=== PATIENT | male | born 1960 | race Caucasian/White ===

== ENCOUNTER 2024-02-20 06:08 | Observation (INO) ==
--- NOTE | 2024-01-15 11:29 | Anesthesiology Consultation ---
Date of Service January 15, 2024 Assessment & Plan (1) Encounter for pre-operative examination: - Check BSG AM DOS - Infectious disease screening: Per assessment on 01/07/24: No known recent infectious disease contacts or current infectious disease symptoms. - Cardiology visit (11/17/22): "Stable from a cardiac standpoint. Denies angina/nitroglycerin use.. Decrease metoprolol succinate to 50mg daily.. ACS ruled out in ER 11/09 with no acute changes on EKG and normal trop x2.. MCOT for further evaluation of heart rate.. TTE to reassess degree of LVH and ensure normal LV systolic function.. Blood pressure is elevated today; however patient has not yet taken medications.. BP log sheet provided to patient.. Patient was educated to check blood pressure and heart rate 1-2 hours after morning medications, or if they are feeling poorly. Patient is to record these readings and call in 1 week with results. [facility].. LDL is well controlled" > Cardiology note 12/08/22: "MCOT revealed slow heart rates in the nighttime hours predominately. Otherwise average in the high 50's -60's range. Please ask patient if he snores, stops breathing at night or has daytime sleepiness. Patient would benefit from sleep study if agreeable." Continued on beta maurice. Echo done 01/2024. - Patient had cardiology-recommended Echo, observer helper and sleep medicine evaluation. Sleep medicine note indicates diagnosis of MERVAT but patient did not have further evaluation/PSG testing (no device currently noted). Patient did not have follow-up visit with [facility] cardiology since. Preop EKG notes SB at 40bpm with iLBBB. Note written to [facility] cardiology- Patient was not able to have [facility] cardiac clearance prior to surgery. Surgery postponed from 01/23/24 to 02/20/24. Scheduled for [facility] cardio appt. Patient acceptable risk for surgery pending cardiology preop evaluation ([facility], appt 01/31). Chart Review Chart Review: Patient NOT seen in Pre Admission Testing History Surgery Operation Date: 02/20/24 07:30 Proposed Procedures p Robotic assisted Laparoscopic Cholecystectomy, Possible Cholangiogram, Possible Open - Kevin Rodríguez, Height/Weight Height: 5 ft 10 in Weight: 149.232 kg Allergies Allergy/AdvReac Type Severity Reaction Status Date / Time No Known Allergies Allergy Verified 01/07/24 07:32 Medications Home Medications Medication Instructions Recorded Confirmed Last Taken diclofenac sodium 50 mg 50 mg PO DAILY PRN Pain 11/23/23 01/07/24 Unknown tablet,delayed release metformin 500 mg tablet 500 mg PO BID 11/23/23 01/07/24 Unknown metoprolol succinate 50 mg 50 mg PO QAM 11/23/23 01/07/24 Unknown tablet,extended release 24 hr omeprazole 20 mg capsule,delayed 20 mg PO QAM 11/23/23 01/07/24 Unknown release rosuvastatin 20 mg tablet 20 mg PO QAM 11/23/23 01/07/24 Unknown torsemide 20 mg tablet 20 mg PO QAM 11/23/23 01/07/24 Unknown valsartan 320 mg tablet 320 mg PO QAM 11/23/23 01/07/24 Unknown Past Medical History Medical History Arthritis Chronic low back pain Diabetes NIDDM GERD (gastroesophageal reflux disease) History of bradycardia Under surveillance HTN (hypertension) Hx of colonic polyps Hx of migraines Hx of pancreatitis Early 2022 No issues since Hyperlipidemia Morbid obesity MERVAT (obstructive sleep apnea) Dx per 01/31/24 [facility] sleep medicine visit Patient canceled subsequent PSG testing, no current device Past Family History Family History Father Kidney disease Cancer Diabetes Hypertension Stroke Mother Kidney disease Diabetes Brother Cancer Diabetes Hypertension Sister Diabetes Sister Diabetes Denies family history of Crohn's disease Colorectal cancer Ulcerative colitis Past Surgical History Surgical History History of esophagogastroduodenoscopy (EGD) Multiple History of hydrocelectomy Hx of colonoscopy 2022 Social History Smoking Status: Never smoker Do You Dip or Chew Tobacco: No Hx Alcohol Use: Yes (hx-none in years) Hx Substance Use: No substance use type: does not use Lab Results Anesthesia Preop Results Results Anesthesia Widget: WBC 9.03 K/ul (4.8-10.8) 12/31/23 Hgb 16.4 g/dl (14.0-18.0) 12/31/23 Hct 49.1 % (42.0-52.0) 12/31/23 Plt 363 K/uL (130-400) 12/31/23 Na 139 mmol/L (136-145) 12/31/23 K 4.6 mmol/L (3.5-5.1) 12/31/23 Cl 101 mmol/L (98-107) 12/31/23 CO2 31 mmol/L (21-32) 12/31/23 BUN 25 mg/dl (6-23) H 12/31/23 Creat 1.00 mg/dl (0.6-1.4) 12/31/23 Glucose Level 103 mg/dl (70-99(Fasting)) H 12/31/23 Testing Electrocardiogram Date: 01/14/24 SB with first degree AVB at 40bpm. iLBBB. Echocardiogram Date: 01/19/23 LVEF 61%. LV wall motion is normal. No significant valvular disease.
[2024-02-20] MEDS ORDERED: ONDANSETRON INJ 2 MG/ML 2 ML VIAL ONE (06:32)
[2024-02-20] MEDS ORDERED: MIDAZOLAM HCL 1 MG/ML 2ML VIAL ONE (06:32)
[2024-02-20] MEDS ORDERED: ROCURONIUM BROMIDE 10 MG/ML 5 ML VIAL IV ONE (06:32)
[2024-02-20] MEDS ORDERED: SUCCINYLCHOLINE CHLORIDE 20 MG/ML 10 ML VIAL IV ONE (06:32)
[2024-02-20] MEDS ORDERED: KETOROLAC 30 MG/ML VIAL ONE (06:32)
[2024-02-20] MEDS ORDERED: LIDOCAINE 2% 2 ML VIAL/AMP(20MG/ML) INFIL ONE (06:32)
[2024-02-20] MEDS ORDERED: DEXAMETHASONE SOD INJ 4 MG/ML VIAL ONE ×3 (06:32→08:26)
[2024-02-20] MEDS ORDERED: PROPOFOL IV EMULSION 10 MG/ML 20 ML VIAL IV ONE (06:32)
[2024-02-20] MEDS ORDERED: fentaNYL citrate PF 100 MCG/2 ML VIAL ONE (06:32)
[2024-02-20] MEDS ORDERED: ATROPINE SULFATE 0.1 MG/ML 10ML SYR IV PRN (06:49)
[2024-02-20] MEDS ORDERED: ePHEDrine sulfate 50 MG/ML AMP IV PRN (06:49)
[2024-02-20] MEDS ORDERED: fentaNYL citrate PF 100 MCG/2 ML VIAL IV PRN (06:49)
[2024-02-20] MEDS: INDOCYANINE GREEN 25 MG VIAL INJ ONE (06:51)
[2024-02-20] MEDS: LR 15ML/HR IV SCH (06:51)
[2024-02-20] MEDS: LACTATED RINGER'S 1,000 ML IV SCH ×2 (06:56→11:10)
--- NOTE | 2024-02-20 07:24 | History & Physical Report ---
Date of Service February 20, 2024 Assessment & Plan (1) Gallstones: Plan: Proceed with robotic assisted laparoscopic cholecystectomy, possible open, possible IOC today Will admit patient after procedure (2) Hx of pancreatitis: History of Present Illness Primary Care Provider: Navi Kimball DO This is a 64 yo male who is here for robotic assisted laparoscopic chol ecystectomy. No new medications or allergies. Allergies Allergy/AdvReac Type Severity Reaction Status Date / Time No Known Allergies Allergy Verified 02/20/24 06:30 Home Medications Medication Instructions Recorded Confirmed Type diclofenac sodium 50 mg 50 mg PO DAILY PRN Pain 11/23/23 02/20/24 History tablet,delayed release metformin 500 mg tablet 500 mg PO BID 11/23/23 02/20/24 History omeprazole 20 mg capsule,delayed 20 mg PO QAM 11/23/23 02/20/24 History release rosuvastatin 20 mg tablet 20 mg PO QAM 11/23/23 02/20/24 History torsemide 20 mg tablet 20 mg PO QAM 11/23/23 02/20/24 History valsartan 320 mg tablet 320 mg PO QAM 11/23/23 02/20/24 History nifedipine 60 mg tablet,extended 120 mg PO DAILY 02/20/24 02/20/24 History release 24 hr Past Med/Surg History Problem List (Updated 02/20/24 @ 07:23 by Kevin Rodríguez DO) Hx of pancreatitis Early 2022 No issues since Drug-induced sinus bradycardia Incomplete left bundle branch block (LBBB) Hyperlipemia Diabetes Gallstones HTN (hypertension) Medical History MERVAT (obstructive sleep apnea) Dx per 01/31/24 [facility] sleep medicine visit Patient canceled subsequent PSG testing, no current device Morbid obesity Arthritis Hx of colonic polyps Chronic low back pain GERD (gastroesophageal reflux disease) Hx of pancreatitis Early 2022 No issues since Hx of migraines History of bradycardia Under surveillance Hyperlipidemia HTN (hypertension) Diabetes NIDDM Surgical History History of hydrocelectomy Hx of colonoscopy 2022 History of esophagogastroduodenoscopy (EGD) Multiple Family History Father Kidney disease Cancer Diabetes Hypertension Stroke Mother Kidney disease Diabetes Brother Cancer Diabetes Hypertension Sister Diabetes Sister Diabetes Denies family history of Crohn's disease Colorectal cancer Ulcerative colitis Social History Smoking Status: Never smoker Second Hand Exposure: No; Do You Dip or Chew Tobacco: No; Tobacco Cessation Education Requested by Patient: No Hx Alcohol Use: Yes (hx-none in years) Hx Substance Use: No Preferred Language: Faroese Communication Ability: Effective Biology Department Chair Required: No Beliefs That Will Affect Care: None Current Living Situation: Alone Current Living Situation Comment: lives in apartment building Other Information That Helps Us Care for You: No Feels Safe at Home: Yes Safety Concerns: Feels Safe At This Time Assistive Devices: None Physical Exam Constitutional: WD/WN, vitals as above Eyes: PERRL, conjunctivae normal, anicteric sclerae ENMT: external ear and nose normal, oropharynx normal Neck: trachea midline, no thyromegaly Respiratory: normal respiratory effort, lungs clear to auscultation Cardiovascular: RRR, no murmur, no edema Gastrointestinal (Abdomen): Inspection/Auscultation: abdomen normal to inspection; abdomen not distended Percussion/Palpation: abdomen soft; abdomen nontender, no guarding and no hernia Musculoskeletal: no cyanosis or clubbing, extremities motor strength 5/5 Skin: no rashes, warm and dry Neurologic: PERRL, EOMI, accommodation nl, no face palsy, no dysarthria Psychiatric: A+Ox3, euthymic affect Results & Data Results & Data Vital Signs (Past 12 Hours) Vital Signs Temp Pulse Resp BP Pulse Ox O2 Del Method 02/20/24 06:34 36.8 C 73 22 169/93 H 95 Room Air PG Care Time/CCT Total # of Minutes Spent Total Time Spent with Patient: Total time spent is greater than 50% in coordination of care (as documented) at patient's floor/unit and/or counseling patient: Coding Level of Care Code None Diagnoses Gallstones K80.20 Hx of pancreatitis Z87.19
--- OUTSIDE RECORDS SUMMARY | 2024-02-20 07:24 | External Medical Summary | Summary of Care ---
Author Name Unknown Organization [facility] Address [address] [place] [address] Phone [phone] Care Team Providers Care Vp Compliance Name Role Phone Jigar Navi Elizondo DO Primary Care Provider + [phone] Reason for Visit * Reason Onset Date Comments Health Maintenance 01/29/2024 Encounter Details Date Type Department Care Team (Late st Contact Info) Description 01/29/2024 Telephone [facility] [address] [place] [address] Lynette Ryder CRNP [address] [place] [address] Health Maintenance Allergies No known active allergiesdocumented as of this encounter (statuses as of 02/06/2024) Medications Medication Sig Dispensed Refills Start Date End Date Status Polyethylene Glycol 3350 17 GM/SCOOP Oral Powder Take 17 g by mouth as needed. Active metFORMIN HCl 500 MG Oral Tablet (Glucophage)Indicatio ns:Prediabetes TAKE ONE TABLET BY MOUTH TWICE A DAY WITH BREAKFAST AND DINNER 180 Tablet 3 10/19/2022 Active Metoprolol Succinate ER 25 MG Oral Tablet Extended Release 24 Hour (toPROL XL)Indications:HTN, goal below 140/90,Bradycardia Take 1 Tablet by mouth in the morning. 90 Tablet 3 11/24/2022 Active Zoster Vac Recomb Adjuvanted 50 MCG/0.5ML Intramuscular Suspension Reconstituted (Shingrix)Indications :Need for shingles vaccine Inject 0.5 mL into a large muscle now and repeat dose in 60 to 180 days 1 Each 1 01/12/2023 Active Rosuvastatin Calcium 20 MG Oral Tablet (Crestor)Indications: Type 2 diabetes mellitus with diabetic polyneuropathy, without long-term current use of insulin (HCC),Mixed hyperlipidemia,Type 2 diabetes mellitus with diabetic polyneuropathy, unspecified whether half-way insulin use (HCC) Take 1 Tablet by mouth in the morning. 90 Tablet 3 04/19/2023 Active Torsemide 20 MG Oral Tablet (Demadex)Indications: HTN, goal below 140/90,LVH (left ventricular hypertrophy) TAKE 1 TABLET BY MOUTH EVERY DAY IN THE MORNING 90 Tablet 1 04/20/2023 Active Omeprazole 20 MG Oral Capsule Delayed Release (PriLOSEC) TAKE BY MOUTH 1 CAPSULE IN THE MORNING. TAKE 1 HOUR BEFORE THE FIRST MEAL OF THE DAY. 90 Capsule 1 04/20/2023 Active Losartan Potassium 100 MG Oral Tablet (Cozaar)Indications:H TN, goal below 140/90 TAKE 1 TABLET BY MOUTH EVERY DAY IN THE MORNING 90 Tablet 1 04/20/2023 Active documented as of this encounter (statuses as of 02/06/2024) Active Problems Problem Noted Date Diagnosed Date LVH (left ventricular hypertrophy) 09/30/2021 Erectile dysfunction 06/19/2019 Erosive gastropathy 03/05/2019 Type 2 diabetes mellitus with diabetic polyneuro mimi 02/14/2019 Renal cyst 02/28/2018 Obesity, morbid (more than 1 00 lbs over ideal weight or BMI > 40) 10/12/2017 Body mass index (BMI) of 50.0 to 59.9 in adult 1 Overview: Per Obesity protocol #1 Hereditary and idiopathic peripheral neuropathy 03/29/2016 Migraine without aura and wi thout status migrainosus, not intractable 01/05/2015 HTN, goal below 140/90 12/23/2014 Hyperlipidemia 12/11/2014 documented as of this encounter (statuses as of 02/06/2024) Resolved Problems Problem Noted Date Diagnosed Date Resolved Date Diabetes mellitus without complication 11/28/2017 03/05/2019 Venous stasis ulcers of both lower extremities 10/29/2017 09/30/2021 BMI 60.0-69.9, adult 10/12/2017 018 Leg swelling 10/12/2017 01/29/2018 Prediabetes 08/29/2017 01/29/2018 Edema 12/11/2016 10/12/2017 Arthritis of right foot 09/16/201511/17 Migraine 12/23/2014 01/05/2015 Obesity, morbid (more than 1 00 lbs over ideal weight or BMI > 40) 12/09/2014 03/22/2017 Overview: Per Obesity protocol #1 documented as of this encounter (statuses as of 02/06/2024) Immunizations Name Administration Dates Next Due Pneumococcal Conjugate Vacci ne, 20-valent ([id number]) 03/02/2023 Pneumococcal Polysaccharide PPV23 (Pneumovax) 10/29/2018 Seasonal Influenza Virus Vac cine, Unspecified Formulation 06/28/2020,03/05/2019 Seasonal Influenza, PF, 6 M & above, IM , (FluLaval or Fluzone) 03/02/2023,04/03/2022,06/28/2020,03/05,05/01/2018 documented as of this encounter Social History Tobacco Use Types Packs/Day Years Used Date Smoking Tobacco: Never Smokeless Tobacco: Never Alcohol Use Standard Drinks/Week Comments No 0 (1 standard drink = 0.6 oz pur e alcohol) PHQ-2 Answer Date Recorded PHQ Adult Total Score 0 01/12/2023 Hunger Vital Sign Answer Date Recorded Within the past 12 months, y ou worried that your food would run out before you got the money to buy more. Never true 01/13/20 23 Within the past 12 months, t he food you bought just didn't last and you didn't have money to get more. Never true 01/12/2023 Sex and Gender Information Value Date Recorded Sex Assigned at Not on file Gender Identity Not on file Sexual Orientation Not on file Job Start Date Occupation Industry Not on file Not on file Not on file documented as of this encounter Miscellaneous Notes * Telephone Encounter - Carlota Rebollar LPN - 01/29/2024 9:27 AM EDT Care Gaps Comprehensive Care Outreach Last Office/Telemedicine Visit: 01/12/2023 (in office), Visit date not found (telemedicine) Next Office Visit: Visit date not found Hemoglobin AIC Results: Lab Results Component Value Date/Time HEMOGLOBIN A1C - [facility] 5.8 (H) 01/12/2023 10:54 AM HEMOGLOBIN A1C - [facility] 5.5 04/03/2022 09:29 AM HEMOGLOBIN A1C - [facility] 5.4 09/30/2021 08:31 AM HEMOGLOBIN A1C - [facility] 6.2 (H) 06/28/2020 09:55 AM HEMOGLOBIN A1C - [facility] 5.9 (H) 12/25/2019 10:03 AM HEMOGLOBIN A1C - [facility] 5.6 08/29/2019 07:09 AM BP Readings from Last 1 Encounters: 01/12/23 142/70 Reviewed Health Maintenance below: Health Maintenance Topic Date Due Diabetic Eye Exam 10/11/2019 B-12 09/30/2022 HbA1c 07/15/2023 GFR 11/10/2023 Albumin/Creatinine Ratio 01/13/2024 Diabetic Foot Exam 01/13/2024 Care Gap Outreach Action Taken: Non-[facility] PCP chart updated documented in this encounter Plan of Treatment Scheduled Procedures Name Priority Associated Diagnoses Date/Ti me COLONOSCOPY FLEXIBLE PROXIMA L DIAGNOSTIC Recall History of colonic polyps Health Maintenance Due Date Last Done Comments DTaP,Tdap,and Td Vaccines (1 - Tdap) 01/27/1979 Sigmoidoscopy 01/27/2005 Zoster Vaccines (1 of 2) 01/27/2010 Fecal Occult Blood Test 10/26/2017 10/26/2016 Diabetic Eye Exam 10/11/2019 10/10/2018 Cologuard 10/29/2021 10/29/2018 B-12 09/30/2022 09/30/2021, 06/18, 02/14/2019, Additional history exists COVID-19 Vaccine ( season) 2023 HbA1c 07/15/2023 01/12/2023, 03/18, 09/30/2021, Additional history exists GFR 11/10/2023 11/09/2022, 03/18, 09/30/2021, Additional history exists Albumin/Creatinine Ratio 01/13/2024 023, 09/30/2021, 08/29/2019, Additional history exists Depression Screening 01/13/2024 01/12/2023 Diabetic Foot Exam 01/13/2024 01/12/2023, 0 09/30/2021, 10/29/2018 Influenza Vaccine (FLU shot) (#1) 2024 03/02/2023, 04/03/2022, 06/28/2020, Additional history exists Lipid Panel 04/03/2027 04/03/2022, 09/16, 06/28/2020, Additional history exists Colonoscopy 11/04/2027 11/03/2022, 10/16, 02/19/2019, Additional history exists Colorectal Cancer Screening 11/04/2027 RETIRED - COLONOSCOPY-EVERY 5 YRS AGES 18-100 Discontinued 11/03/2022, 11/03/2022, 02/19/2019, Additional history exists Pneumococcal Vaccine: Pediatrics (0 to 5 Years) and At-Risk Patients (6 to 64 Years) Completed 03/02/2023, 10/29/2018 HPV (Gardasil) Vaccine Aged Out No lo nger eligible based on patient's age to complete this topic Hepatitis B Vaccine Aged Out No longe r eligible based on patient's age to complete this topic MENINGOCOCCAL (MENACTRA/MENVEO) Aged Out No longer eligible based on patient's age to complete this topic documented as of this encounter Medical Devices Not on filedocumented as of this encounter Care Teams Vp Compliance Relationship Specialty Start Date End Date Navi Kimball DO [address] [place] [id number] PCP - General Family Medicine 01/29/24 documented as of this encounter
[2024-02-20] MEDS: ceFAZolin 3000MG 3,000 MG/72.5 ML BAG IV SCH (07:26)
[2024-02-20] MEDS ORDERED: ePHEDrine sulfate 50 MG/5 ML SYR ONE (07:57)
[2024-02-20] MEDS ORDERED: SUCCINYLCHOLINE 100MG/5ML SYR IV ONE ×2 (08:25)
[2024-02-20] MEDS ORDERED: SUGAMMADEX SODIUM 200 MG/2 ML VIAL IV ONE (09:12)
[2024-02-20] MEDS: BUPIVACAINE/EPINEPHRINE 0.5% MPF 1:200,000 30 ML VIAL ONE (09:26)
--- NOTE | 2024-02-20 09:31 | Post Operative Brief Note ---
PG Immediate Post Op with CF Date of Surgery February 20, 2024 Pre & Post Diagnosis Operation Date: 02/20/24 07:30 Pre-Op Diagnosis: Symptomatic Cholelithiasis, History of pancreatitis Post-Op Diagnosis: Symptomatic Cholelithiasis, History of pancreatitis I identified the patient and participated in the time-out.: Yes Procedure Operation Date: 02/20/24 07:30 Actual Procedures p Robotic assisted Laparoscopic Cholecystectomy, Cholangiogram(Not Applicable) - Kevin Rodríguez DO Surgeon Kevin Rodríguez DO Insurance Adjuster Bennett KIRKLAND Estimated Blood Loss 200 Findings Consistent with Post-Op Diagnosis Specimens Specimen Description: A. Gallbladder Anesthesia Type General Complications none Disposition Disposition: Recovery Room
--- NOTE | 2024-02-20 09:38 | Operative Report ---
PG Post Operative Report Pre & Post Diagnosis Operation Date: 02/20/24 07:30 Pre-Op Diagnosis: Symptomatic Cholelithiasis, History of pancreatitis Post-Op Diagnosis: Symptomatic Cholelithiasis, History of pancreatitis I identified the patient and participated in the time-out.: Yes Procedure Operation Date: 02/20/24 07:30 Actual Procedures p Robotic assisted Laparoscopic Cholecystectomy(Not Applicable) - Kevin Rodríguez DO Surgeon Kevin Rodríguez DO Health Services Director Bennett KIRKLAND Estimated Blood Loss 200 Findings Consistent with Post-Op Diagnosis Fluids see anesthesia record Specimens Gallbladder to pathology Drains None Anesthesia Type General Complications none Disposition Disposition: Recovery Room Indications 64 yo male with symptomatic cholelithiasis, history of gallstone pancreatitis Description of Procedure The patient was brought to the operating room and placed in the supine position with both arms extended. At this time he underwent general endotracheal anesthesia without any problems. He was given appropriate pre-operative antibiotics. His abdomen prepped and draped in the usual sterile fashion. A timeout was called, the procedure was verified as Robotic assisted laparoscopic cholecystectomy, possible open, possible intra-operative cholangiogram. Surgical, nursing and anesthesia teams agreed and the procedure was begun. After injection of 0.25% Marcaine with epinephrine, a supraumbilical vertical incision was made and carried down to the fascia using S-retractors. The abdominal wall was then elevated with towel clamps and abdomen entered using the Veress needle confirming position using the saline drop test. Pneumoperitoneum was established. 8mm trocar was placed. Laparoscope was introduced. No injury from entry into the abdomen was visualized after inspection of the abdomen. Three further ports were placed under direct visualization. One 5mm operations and intelligence assistant port in the RUQ and two 8mm robotic ports in the right and left mid abdomen in the mid clavicular line. The robot was then docked at this time and instruments placed into the abdomen under direct visualization. At this time the abdomen was inspected and the gallbladder identified. The gallbladder fundus was grasped and retracted cephalad. The gallbladder infundibulum was then grasped and retracted laterally. The cystic duct and cystic artery were then identified and skeletonized. The critical view of safety was obtained. They were both then clipped twice proximally and once distally and then divided using scissors. There was some bleeding from the fatty tissue around the duct that was controlled once the cystic duct was clipped. The gallbladder was then taken off of the liver bed using electrocautery and placed in an endocatch bag and removed from the right abdominal port. The liver bed was then inspected and no bile leak or bleeding was evident. The trocars were then removed under direct visualization and no bleeding was present. Abdomen was desufflated. The skin was then closed using 4-0 Monocryl in a subcuticular fashion. Surgical glue was applied. Needle and sponge counts were correct x 2. At this time the patient was awoken from anesthesia and extubated having remained stable throughout the entire case. The patient was then transported to PACU in stable condition. The nurse practitioner was present and scrubbed for the entire procedure. She was essential in positioning, prepping and draping the patient, retraction and exposure, closure of the incisions and placement of the dressings. I attest to the content of the Intraoperative Record and any orders documented therein. Any exceptions are noted below.
[2024-02-20] MEDS: ONDANSETRON INJ 2 MG/ML 2 ML VIAL IV PRN (09:51)
--- NOTE | 2024-02-20 10:38 | Anesthesiology Progress Note ---
Date of Service February 20, 2024 Anesthesia Post Procedure Vital Signs Vital Signs: Temp Pulse Resp BP Pulse Ox O2 Del Method O2 Flow Rate 02/20/24 10:30 70 12 164/88 H 96 Nasal Cannula 2 02/20/24 10:15 68 12 166/78 H 96 Nasal Cannula 2 02/20/24 10:05 97.5 F L 70 16 149/84 H 97 Nasal Cannula 2 02/20/24 09:55 71 15 164/81 H 97 Oxymask 11 02/20/24 09:45 72 20 168/96 H 93 Oxymask 11 02/20/24 09:39 97.0 F L 72 20 168/96 H 93 Oxymask 11 02/20/24 06:34 98.2 F 73 22 169/93 H 95 Room Air Pain Intensity Abdomen: Pain Intensity: 2 Transfer of Care Handoff Completed per policy Notes Mental Status: alert / awake / arousable and participated in evaluation Patient Amnestic to Procedure: Yes Nausea / Vomiting: adequately controlled Pain: adequately controlled Airway Patency, RR, SpO2: stable & adequate BP & HR: stable & adequate Hydration State: stable & adequate Anesthetic Complications: no major complications apparent and Pt Satisfied with anesthetic care
[2024-02-20] MEDS ORDERED: GLUCAGON FOR INJ 1 MG VIAL SQ PRN (10:49)
[2024-02-20] MEDS ORDERED: MoRPHine SULFATE 2 MG/ML CARP IV PRN (10:49)
[2024-02-20] MEDS ORDERED: ACETAMINOPHEN 325 MG TAB PO PRN (10:49)
[2024-02-20] MEDS ORDERED: ONDANSETRON INJ 2 MG/ML 2 ML VIAL IV PRN (10:49)
[2024-02-20] MEDS ORDERED: DEXTROSE 50% 50 ML SYRINGE IV PRN (10:49)
[2024-02-20] MEDS ORDERED: MoRPHine SULFATE 4 MG/ML 1 ML CARP\\VIAL IV PRN (10:49)
[2024-02-20] MEDS ORDERED: GLUCOSE 40% GEL 15 GM TUBE PO PRN (10:49)
[2024-02-20] MEDS ORDERED: PHARMACY GLYCEMIC MGMT CONSULT PRN (10:49)
[2024-02-20] MEDS ORDERED: CARBOHYDRATES FOR HYPOGLYCEMIA PO PRN (10:49)
[2024-02-20] MEDS ORDERED: oxyCODONE HCL IR 5 MG TAB (IMMEDIATE RELEASE) PO PRN ×2 (10:49)
[2024-02-20] MEDS ORDERED: GLUCOSE 10 TAB/TUBE PO PRN (10:49)
--- NOTE | 2024-02-20 11:22 | Hospitalist Consultation ---
Date of Consultation February 20, 2024 Assessment & Plan (1) Status post laparoscopic cholecystectomy: Pain / VTE / Bowel / Diet management per primary surgery team CBC and CMP post operatively ordered by primary team tomorrow (2) Diabetes: Pharmacy glycemic control ordered by primary surgery team Patient unsure whether he has pre-diabetes and diabetes, unsure of most recent HbA1C, uses metformin alone at home Will get HbA1C with AM labs to help with decision making on discharge m edications (3) GERD (gastroesophageal reflux disease): Switch omeprazole for pantoprazole per hospital formulary, did not take dose today therefore will start now (4) HTN (hypertension): Did not take his regular medications this morning. Given current hgh blood pressure and pain well controlled will give hs usual valsartan back today and continue his usual medications tomorrow. (5) MERVAT (obstructive sleep apnea): Patient denies this diagnosis but unsure of results from most recent sleep study from [facility]. No ton CPAP at home therefore no need to start here. History of Present Illness Reason for Consultation: assist with medical management Attending Physician: Kevin Rodríguez, History of Present Illness Mikhail Noble is a 64 year old male POD#0 s/p Robotic assisted Laparoscopic Cholecystectomy for symptomatic cholelithiasis. He reports his pain is under control. No acute concerns or questions from the patient. He reports his BP usually runs in the 160s without his anti-hypertensives but in the 140s with them and he did not take any medications today pre-operatively. Allergies Allergy/AdvReac Type Severity Reaction Status Date / Time No Known Allergies Allergy Verified 02/20/24 06:30 Home Medications Medication Instructions Recorded Confirmed Type diclofenac sodium 50 mg 50 mg PO DAILY PRN Pain 11/23/23 02/20/24 History tablet,delayed release metformin 500 mg tablet 500 mg PO BID 11/23/23 02/20/24 History omeprazole 20 mg capsule,delayed 20 mg PO QAM 11/23/23 02/20/24 History release rosuvastatin 20 mg tablet 20 mg PO QAM 11/23/23 02/20/24 History torsemide 20 mg tablet 20 mg PO QAM 11/23/23 02/20/24 History valsartan 320 mg tablet 320 mg PO QAM 11/23/23 02/20/24 History nifedipine 60 mg tablet,extended 120 mg PO DAILY 02/20/24 02/20/24 History release 24 hr oxycodone 5 mg tablet 5 - 10 mg (1 - 2 x 5 mg) PO 02/20/24 Rx .[id number] PRN pain, for initial therapy, max 6 tabs per day #15 tabs Patient History Medical History MERVAT (obstructive sleep apnea) Dx per 01/31/24 [facility] sleep medicine visit Patient canceled subsequent PSG testing, no current device Morbid obesity Arthritis Hx of colonic polyps Chronic low back pain GERD (gastroesophageal reflux disease) Hx of pancreatitis Early 2022 No issues since Hx of migraines History of bradycardia Under surveillance Hyperlipidemia HTN (hypertension) Diabetes NIDDM Surgical History History of hydrocelectomy Hx of colonoscopy 2022 History of esophagogastroduodenoscopy (EGD) Multiple Family History Father Kidney disease Cancer Diabetes Hypertension Stroke Mother Kidney disease Diabetes Brother Cancer Diabetes Hypertension Sister Diabetes Sister Diabetes Denies family history of Crohn's disease Colorectal cancer Ulcerative colitis Social History Smoking Status: Never smoker Second Hand Exposure: No; Do You Dip or Chew Tobacco: No; Tobacco Cessation Education Requested by Patient: No Hx Alcohol Use: Yes (hx-none in years) Hx Substance Use: No Preferred Language: Urugu[place] Communication Ability: Effective Postal Service Clerk Required: No Beliefs That Will Affect Care: None Current Living Situation: Alone Current Living Situation Comment: lives in apartment building Other Information That Helps Us Care for You: No Feels Safe at Home: Yes Safety Concerns: Feels Safe At This Time Assistive Devices: None Review of Systems Review of Systems: All systems reviewed & are unremarkable except as noted in HPI & below Physical Exam Constitutional: WD/WN, vitals as above Eyes: + anicteric sclerae; normal pupil size ENMT: external ear and nose normal, oropharynx normal Respiratory: normal respiratory effort, lungs clear to auscultation Cardiovascular: Rate/Rhythm: regular rate and regular rhythm (occasional skipped beats (PVCs on telemetry)) Heart Sounds: no murmur Extremities: normal capillary refill and + pedal edema (trace b/l equal); no calf tenderness Gastrointestinal (Abdomen): Inspection/Auscultation: normal bowel sounds; + abdomen abnormal to inspection Percussion/Palpation: + abdomen tender (mild tenderness around surgical incisions, clean/dry/intact) and abdomen soft; no guarding and abdomen not rigid Skin: no rashes, warm and dry Neurologic: moves all extremities and awake; not confused Psychiatric: A+Ox3, euthymic affect Results & Data Results & Data Vital Signs (Past 12 Hours) Vital Signs Temp Pulse Resp BP Pulse Ox O2 Del Method O2 Flow Rate 02/20/24 10:30 70 12 164/88 H 96 Nasal Cannula 2 02/20/24 10:15 68 12 166/78 H 96 Nasal Cannula 2 02/20/24 10:05 36.4 C L 70 16 149/84 H 97 Nasal Cannula 2 02/20/24 09:55 71 15 164/81 H 97 Oxymask 11 02/20/24 09:45 72 20 168/96 H 93 Oxymask 11 02/20/24 09:39 36.1 C L 72 20 168/96 H 93 Oxymask 11 02/20/24 06:34 36.8 C 73 22 169/93 H 95 Room Air Laboratory Results Abnormal lab results 02/20/24 02/20/24 Range/Units 06:27 09:54 POC Glucose 118 H 154 H (70-99) mg/dl PG Care Time/CCT Total # of Minutes Spent Total Time Spent with Patient: Total time spent is greater than 50% in coordination of care (as documented) at patient's floor/unit and/or counseling patient: Coding Level of Care Code 18113 IN/OBS CONSULT LVL 3,45M Diagnoses Status post laparoscopic cholecystectomy Z90.49 Diabetes E11.9 GERD (gastroesophageal reflux disease) K21.9 HTN (hypertension) I10 MERVAT (obstructive sleep apnea) G47.33
--- NOTE | 2024-02-20 12:26 | Pharmacy Report ---
Pharmacy Glycemic Short Note 2 - Date of Service February 20, 2024 - Glycemic Short BSG Results (Last 24 hours): 02/20/24 02/20/24 02/20/24 06:27 09:54 12:05 POC Glucose 118 H 154 H 137 H OUTPATIENT ANTIDIABETIC REGIMEN: * metformin 500 mg bid ASSESSMENT: * 64 year old s/p procedure, POD 0 - Patient is type 2 diabetic managed only on metformin at home. Postop BSG 137 mg/dL - steroids pulled in OR, unclear if given. Will plan to utilize novolog SSI for now. May consider small dose of basal insulin for later if BSGs trending upward. PLAN FOR INPATIENT GLYCEMIC CONTROL: * Hold outpatient oral diabetes medications * Basal insulin * Lantus - hold * Bolus insulin * NovoLog per scale ACHS or Q6hrs while NPO * Goal Range: Low 110 mg/dL - High 140 mg/dL * Correction Factor: 25 mg/dL/unit * Nutritional / Prandial insulin per carb ratio of 1 unit per 8 grams CHO consumed
[2024-02-20] MEDS: INSULIN ASPART PER UNIT CHARGE SC SCH (12:42)
[2024-02-20] MEDS: PANTOprazole 40 MG TAB PO ONE (12:46)
[2024-02-20] MEDS: VALSARTAN 80 MG TAB PO ONE (12:47)
[2024-02-21 06:30] LABS: Basophils # (auto) 0.03 K/uL (0.00-0.20); Basophils % (auto) 0.2 %; Hematocrit (blood only) 42.1 % (42.0-52.0); Hemoglobin 14.3 g/dl (14.0-18.0); Immature Granulocytes # (auto) 0.07 K/uL (0.01-0.20); Immature Granulocytes % (auto) 0.4 %; Lymphocytes # (auto) 1.38 K/uL (1.20-3.40); Lymphocytes % (auto) 8.6 %; Mean Corpuscular Hemoglobin 29.3 pg (25.0-34.0); Mean Corpuscular Volume 86.3 fL (80.0-100.0); Mean Platelet Volume 9.8 fL (9.4-12.4); Monocytes # (auto) 0.88 K/uL (0.11-0.59); Monocytes % (auto) 5.5 %; Neutrophils # (auto) 13.69 K/uL (1.40-6.50); Neutrophils % (auto) 85.3 %; Platelet Count 334 K/uL (130-400); RDW Coefficient of Variation 13.3 % (11.5-14.5); RDW Standard Deviation 41.7 fL (36.4-46.3); Red Blood Count 4.88 M/uL (4.70-6.10); White Blood Count 16.05 K/ul (4.8-10.8)
[2024-02-21 06:58] LABS: Albumin Globulin Ratio 1.5 (0.9-2); Albumin Level 4.1 gm/dl (3.4-5.0); BUN Creatinine Ratio 29.8 (10-20); Bilirubin,Total 0.4 mg/dl (0.2-1.0); Calcium 9.4 mg/dl (8.6-10.3); Est GFR (African American) 107.2 ml/min; Est GFR (Non-African American) 92.5 ml/min; Globulin 2.7 gm/dl (2.5-4.0); Magnesium 2.1 mg/dl (1.7-2.4); Potassium 4.3 mmol/L (3.5-5.1); Total Protein 6.8 gm/dl (6.0-8.3)
[2024-02-21 07:42] LABS: Estimated Average Glucose 120 mg/dl; Hemoglobin A1C 5.8 % (4.5-5.6)
--- NOTE | 2024-02-21 07:47 | Hospitalist Progress Note ---
Date of Service February 21, 2024 Assessment & Plan (1) Status post laparoscopic cholecystectomy: Plan: s/p Robotic assisted Laparoscopic Cholecystectomy(Not Applicable) - Kevin Rodríguez DO. EBL 200cc. Done for symptomatic cholelithiasis Pain / VTE / Bowel / Diet management per primary surgery team POD#1, VSS BP 146/79, HR 54bpm, 93% on RA. WBC elevation suspected 2nd to stress of surgery. Is afebrile and feeling well --Got ancef w/ surgery Hgb 16.4-->14.3, acute blood loss from surgery/dilutional from IVF. No CP/SOB, VSS Chemistries with stable electrolytes, Cr 0.84 A1c 5.8, ok to continue metformin BID at ia, f/u with PCP. B12 replacement as below Dispo: per primary, planning to discharge this morning. Ok from medicine standpoint Please call with any questions/concerns. (2) Diabetes: Plan: Pharmacy glycemic control ordered by primary surgery team Patient unsure whether he has pre-diabetes and diabetes, unsure of most recent HbA1C, uses metformin alone at home A1c 5.8, can continue metformin at discharge. F/u PCP (3) GERD (gastroesophageal reflux disease): Plan: PPI continued (4) HTN (hypertension): Plan: Did not take his regular medications morning of surgery however BP elevated and was continued on home medications. Not on BB due to block, follows w/ [facility] BP stable 146/79, continue home meds (5) MERVAT (obstructive sleep apnea): Plan: Patient denies this diagnosis but unsure of results from most recent sleep study from [facility]. Not on CPAP at home therefore no need to start here. F/u PCP (6) B12 deficiency: Plan: checked given metformin use LOW 141, IM replacement has been ordered and asked RN to provide dose prior to discharge and discussed with patient to continue 1000mcg PO daily which has been sent/on discharge medication list Plan Thank you for allowing hospitalist service to participate in the care of Mr Monroy. Hospitalist service will sign off at this time. Please call with any questions/concerns. Admission and Anticipated Discharge Date Admission Date: February 20, 2024 Supervising Physician Co-Signing Physician Notes The patient was not seen by me. The chart was reviewed. Case discussed with MULUGETA Dejesus. Agree with assessment and plan Subjective Evaluated this morning, just moved bowels about 10-15min ago, passing gas. Pain controlled. No fever/chills, chest pain, shortness of breath, nausea/vomiting. Ready for dc, dressed and getting instructions by nursing. Discussed B12 replacement, RN to give IM injection prior to dc and continue PO supplementation at dc. Incisions look good, encouraged to wear pants above incisions or below to prevent rubbing/irritation. Questions/concerns addressed. Rx sent for B12. Physical Exam Physical Exam: General: 64yo obese male sitting up in recliner, dressed and ready to go HEENT; head atraumatic, normocephalic, thick neck, trachea midline Resp: even/unlabored, slightly diminished in the bases but no w/c/r, on room air CV: Regular, angelia to 50s, no significant mrg, trace pedal edema, pulses present GI: +BS, soft/slight distension, obese incisions look good x4, no active drainage /redness/warmth no rebound/guarding MSK/Neuro: nonfocal, answering questions appropriately, not confused, CN intact grossly, following commands Psych: AOx3, cooperative with exam Results & Data Results & Data Vital Signs (Past 12 Hours) Vital Signs Temp Pulse Pulse Resp BP Pulse Ox O2 Del Method 02/21/24 07:39 54 L 02/21/24 07:24 36.4 C L 52 L 18 146/79 H 93 Room Air 02/21/24 03:20 36.3 C L 63 16 104/58 L 95 Room Air 02/20/24 22:20 36.3 C L 62 16 100/56 L 93 Room Air 02/20/24 21:34 64 Laboratory Results 02/21/24 02/20/24 02/20/24 Range/Units 05:24 20:08 17:13 WBC 16.05 H (4.8-10.8) K/ul RBC 4.88 (4.70-6.10) M/uL Hgb 14.3 (14.0-18.0) g/dl Hct 42.1 (42.0-52.0) % MCV 86.3 (80.0-100.0) fL MCH 29.3 (25.0-34.0) pg MCHC 34.0 (32.0-36.0) g/dL RDW Std Deviation 41.7 (36.4-46.3) fL RDW Coeff of Oralia 13.3 (11.5-14.5) % Plt Count 334 (130-400) K/uL MPV 9.8 (9.4-12.4) fL Immature Gran % (Auto) 0.4 % Neut % (Auto) 85.3 % Lymph % (Auto) 8.6 % Davison % (Auto) 5.5 % Eos % (Auto) 0.0 % Baso % (Auto) 0.2 % Neut # (Auto) 13.69 H (1.40-6.50) K/uL Lymph # (Auto) 1.38 (1.20-3.40) K/uL Davison # (Auto) 0.88 H (0.11-0.59) K/uL Eos # (Auto) 0.00 (0.00-0.50) K/uL Baso # (Auto) 0.03 (0.00-0.20) K/uL Immature Gran # (Auto) 0.07 (0.01-0.20) K/uL Sodium 138 (136-145) mmol/L Potassium 4.3 (3.5-5.1) mmol/L Chloride 104 (98-107) mmol/L Carbon Dioxide 25 (21-32) mmol/L Anion Gap 9 (3-11) BUN 25 H (6-23) mg/dl Creatinine 0.84 (0.6-1.4) mg/dl Est Cr Clr Drug Dosing 132.0 ml/min Est GFR ( Amer) 107.2 ml/min Est GFR (Non-Af Amer) 92.5 ml/min BUN/Creatinine Ratio 29.8 H (10-20) Glucose 117 H (70-99(Fasting)) mg/dl POC Glucose 127 H 130 H (70-99) mg/dl Estimat Average Glucose 120 mg/dl Hemoglobin A1c 5.8 H (4.5-5.6) % Calcium 9.4 (8.6-10.3) mg/dl Magnesium 2.1 (1.7-2.4) mg/dl Total Bilirubin 0.4 (0.2-1.0) mg/dl AST 38 (13-39) U/L ALT 51 (7-52) U/L Alkaline Phosphatase 62 (34-104) U/L Total Protein 6.8 (6.0-8.3) gm/dl Albumin 4.1 (3.4-5.0) gm/dl Globulin 2.7 (2.5-4.0) gm/dl Albumin/Globulin Ratio 1.5 (0.9-2) Vitamin B12 141 L (180-914) pg/ml 02/20/24 02/20/24 Range/Units 12:05 09:54 WBC (4.8-10.8) K/ul RBC (4.70-6.10) M/uL Hgb (14.0-18.0) g/dl Hct (42.0-52.0) % MCV (80.0-100.0) fL MCH (25.0-34.0) pg MCHC (32.0-36.0) g/dL RDW Std Deviation (36.4-46.3) fL RDW Coeff of Oralia (11.5-14.5) % Plt Count (130-400) K/uL MPV (9.4-12.4) fL Immature Gran % (Auto) % Neut % (Auto) % Lymph % (Auto) % Davison % (Auto) % Eos % (Auto) % Baso % (Auto) % Neut # (Auto) (1.40-6.50) K/uL Lymph # (Auto) (1.20-3.40) K/uL Davison # (Auto) (0.11-0.59) K/uL Eos # (Auto) (0.00-0.50) K/uL Baso # (Auto) (0.00-0.20) K/uL Immature Gran # (Auto) (0.01-0.20) K/uL Sodium (136-145) mmol/L Potassium (3.5-5.1) mmol/L Chloride (98-107) mmol/L Carbon Dioxide (21-32) mmol/L Anion Gap (3-11) BUN (6-23) mg/dl Creatinine (0.6-1.4) mg/dl Est Cr Clr Drug Dosing ml/min Est GFR ( Amer) ml/min Est GFR (Non-Af Amer) ml/min BUN/Creatinine Ratio (10-20) Glucose (70-99(Fasting)) mg/dl POC Glucose 137 H 154 H (70-99) mg/dl Estimat Average Glucose mg/dl Hemoglobin A1c (4.5-5.6) % Calcium (8.6-10.3) mg/dl Magnesium (1.7-2.4) mg/dl Total Bilirubin (0.2-1.0) mg/dl AST (13-39) U/L ALT (7-52) U/L Alkaline Phosphatase (34-104) U/L Total Protein (6.0-8.3) gm/dl Albumin (3.4-5.0) gm/dl Globulin (2.5-4.0) gm/dl Albumin/Globulin Ratio (0.9-2) Vitamin B12 (180-914) pg/ml PG Care Time/CCT Total # of Minutes Spent Total Time Spent with Patient: Total time spent is greater than 50% in coordination of care (as documented) at patient's floor/unit and/or counseling patient: Coding Level of Care Code 94169 SUB INP/OBS CARE 2/35MIN Diagnoses Status post laparoscopic cholecystectomy Z90.49 Diabetes E11.9 GERD (gastroesophageal reflux disease) K21.9 HTN (hypertension) I10 MERVAT (obstructive sleep apnea) G47.33 B12 deficiency E53.8
--- NOTE | 2024-02-21 07:48 | Surgery Progress Note ---
Date of Service February 21, 2024 Assessment & Plan (1) Status post laparoscopic cholecystectomy: Plan: POD#1 lap vangie WBC 16, hbg stable at 14. vitals stable, afebrile pain and nausea controlled tolerating a diet incisions c/d/i. + flatus stable for discharge to home, f/u in office within 2 weeks for check up Okay to take bowel regimen at home if he needs as he inquired appreciate medicine's assistance Admission and Anticipated Discharge Date Admission Date: February 20, 2024 Subjective Patient says he feels well overall. Pain controlled. Intermittent nausea, but says this is normal for him. He has otherwise been tolerating diet without emesis. + Voiding and passing flatus. Feels like he is getting in and out of bed well. Physical Exam Physical Exam: awake, alert, sitting up in chair Respiratory: normal respiratory effort Gastrointestinal (Abdomen): Inspection/Auscultation: + abdominal surgical incision (c/d/i with skin glue); abdomen not distended Percussion/Palpation: + abdomen tender (mild galo incisional discomfort to palpation) and abdomen soft Results & Data Vital Signs (Past 12 Hours) Vital Signs Temp Pulse Pulse Resp BP Pulse Ox O2 Del Method 02/21/24 07:39 54 L 02/21/24 07:24 97.5 F L 52 L 18 146/79 H 93 Room Air 02/21/24 03:20 97.3 F L 63 16 104/58 L 95 Room Air 02/20/24 22:20 97.3 F L 62 16 100/56 L 93 Room Air 02/20/24 21:34 64 PG Care Time/CCT Total # of Minutes Spent Total Time Spent with Patient: Total time spent is greater than 50% in coordination of care (as documented) at patient's floor/unit and/or counseling patient: Coding Level of Care Code 47566 Post Operative Follow-Up Diagnoses Status post laparoscopic cholecystectomy Z90.49
[2024-02-21] MEDS: TORSEMIDE 20 MG TAB PO SCH (07:49)
[2024-02-21] MEDS: ROSUVASTATIN CALCIUM 20 MG TAB PO SCH (07:49)
[2024-02-21] MEDS: VALSARTAN 80 MG TAB PO SCH (07:49)
[2024-02-21] MEDS: PANTOprazole 40 MG TAB PO SCH (07:49)
[2024-02-21] MEDS: NIFEdipine EXTENDED REL 30 MG TABCR PO SCH (07:50)
[2024-02-21] MEDS: CYANOCOBALAMIN 1000 MCG/ML VIAL IM SCH (09:19)
== END 2024-02-21 10:05 | disposition home or self-care (01) ==
LOC: ASU 06:08 → 2W 06:08